=== PATIENT | male | born 1985 | race Caucasian/White ===

== ENCOUNTER 2017-11-01 11:58 | Emergency (ER) | payer OTHER ==
[~2017-11-01] VITALS: Ht 182.9 cm; Wt 115.7 kg
[2017-11-01 12:10] VITALS: BP 152/65
[2017-11-01] MEDS ORDERED: ZYRTEC10 M5 PO (12:20)
[2017-11-01] MEDS ORDERED: NEXIUM40 MG PO (12:20)
[2017-11-01] MEDS ORDERED: TRAMADOL 50 MG50 MG PO (12:52)
[2017-11-01] MEDS ORDERED: IBUPROFEN 800800 M1 PO (12:52)
== END 2017-11-01 13:10 | disposition home or self-care (01) ==
LOC: M.ERS 11:58
DX: S93.491A Sprain of other ligament of right ankle, initial encounter (principal); K21.9 Gastro-esophageal reflux disease without esophagitis; X50.9XXA Other and unspecified overexertion or strenuous movements or postures, initial encounter; Y93.89 Activity, other specified; Y92.89 Other specified places as the place of occurrence of the external cause; Y99.8 Other external cause status

== ENCOUNTER 2018-03-30 19:45 | Emergency (ER) | payer OTHER ==
[~2018-03-30] VITALS: Ht 180.3 cm; Wt 124.7 kg
[~2018-03-30 19:45] MED LIST: IBUPROFEN 800800 M1 PO; NEXIUM40 MG PO; TRAMADOL 50 MG50 MG PO; ZYRTEC10 M5 PO
[2018-03-30] MEDS ORDERED: FLONASE 0.05%50 MCG (19:58)
[2018-03-30] MEDS ORDERED: AUGMENTIN 875-1 EACH PO (20:35)
[2018-03-30 21:16] VITALS: BP 130/78
== END 2018-03-30 21:16 | disposition home or self-care (01) ==
LOC: M.ERS 19:45
DX: S81.852A Open bite, left lower leg, initial encounter (principal); K21.9 Gastro-esophageal reflux disease without esophagitis; Z88.1 Allergy status to other antibiotic agents; Z86.73 Personal history of transient ischemic attack (TIA), and cerebral infarction without residual deficits; W54.0XXA Bitten by dog, initial encounter; Y93.89 Activity, other specified; Y92.89 Other specified places as the place of occurrence of the external cause; Y99.8 Other external cause status

== ENCOUNTER 2018-10-12 19:05 | Emergency (ER) | payer OTHER ==
[~2018-10-12] VITALS: Ht 180.3 cm; Wt 127.0 kg
[~2018-10-12 19:05] MED LIST changes: +AUGMENTIN 875-1 EACH PO; +FLONASE 0.05%50 MCG
[2018-10-12] MEDS ORDERED: MEDROLDOSEPACK PO (19:53)
[2018-10-12] MEDS ORDERED: VENTOLIN HFA 1818 GM INH (19:53)
[2018-10-12 20:04] VITALS: BP 127/82
== END 2018-10-12 20:04 | disposition home or self-care (01) ==
LOC: M.ERS 19:05
DX: J45.901 Unspecified asthma with (acute) exacerbation (principal); K21.9 Gastro-esophageal reflux disease without esophagitis; M10.9 Gout, unspecified; Z88.8 Allergy status to other drugs, medicaments and biological substances

== ENCOUNTER 2019-07-20 01:16 | Emergency (ER) | payer OTHER ==
[~2019-07-20] VITALS: Ht 180.3 cm; Wt 124.7 kg
[~2019-07-20 01:16] MED LIST changes: +MEDROLDOSEPACK PO; +VENTOLIN HFA 1818 GM INH
[2019-07-20 01:33] VITALS: BP 158/96
[2019-07-20] MEDS ORDERED: VISTARIL 25 MG25 M1 PO (01:36)
[2019-07-20] MEDS ORDERED: HYDROXYZINE HCL25 M2 PO (01:39)
[2019-07-20] MEDS ORDERED: TRAZODONE HCL50 MG PO (01:39)
== END 2019-07-20 01:49 | disposition home or self-care (01) ==
LOC: M.ERS 01:16
DX: F41.9 Anxiety disorder, unspecified (principal); K21.9 Gastro-esophageal reflux disease without esophagitis; M10.9 Gout, unspecified; Z88.1 Allergy status to other antibiotic agents